=== PATIENT | female | born 1980 | race Caucasian/White ===

== ENCOUNTER 2021-04-17 16:21 | Emergency (ER) | payer BC ==
[~2021-04-17] VITALS: Ht 165.1 cm; Wt 1.8 kg
[~2021-04-17 16:21] MED LIST: ADDERALL 20 MG20 M1 PO; ALBUTEROL INH; DELTASONE20 MG PO; DOXYCYCLINE 10100 MG PO; EPIPEN 2-P0.3 MG/0.3 IM; HYDROXYZINE HCL25 M1 PO; MEDROLDOSEPACK PO; NORCO 7.5-3251 EACH PO; ZPAK
[2021-04-17 16:48] LABS: URINE BLOOD 1+ (Negative); URINE CLARITY CLEAR; URINE COLOR YELLOW; URINE GLUCOSE-RANDOM NEGATIVE (Negative); URINE KETONES NEGATIVE (Negative); URINE LEUKOCYTES-REFLEX NEGATIVE (Negative); URINE NITRITE-REFLEX NEGATIVE (Negative); URINE PROTEIN 1+ (Negative); URINE SPECIFIC GRAVITY >= 1.030 (1.005-1.030)
[2021-04-17 16:53] LABS: ICTOTEST (BILI CONFIRMATORY) Positive (Negative); URINE BILIRUBIN 1+ (Negative)
[2021-04-17 17:05] LABS: CRYSTALS None Seen /LPF (None Seen); HYALINE CASTS >10 Many /LPF (None Seen); MUCUS 4-6 Moderate strn/LPF (None Seen); SQUAMOUS >10 Many /LPF (0-3); URINE WBC-REFLEX 0-5 Rare /HPF (0-5)
[2021-04-17 17:06] LABS: URINE RBC 0-2 Rare /HPF (0-2)
[2021-04-17 17:07] LABS: AMP/METHAMP Negative (Negative); BARBITURATES Negative (Negative); BENZODIAZEPINES POSITIVE (Negative); COCAINE Negative (Negative); METHADONE Negative (Negative); OPIATES Negative (Negative); PCP Negative (Negative); THC POSITIVE (Negative)
[2021-04-17 17:20] LABS: ABSOLUTE BASOPHILS 0.1 thou/uL (0.0-0.2); ABSOLUTE EOSINOPHILS 0.1 thou/uL (0.0-0.7); ABSOLUTE LYMPHOCYTES 1.5 thou/uL (0.8-5.3); ABSOLUTE NEUTROPHILS 10.4 thou/uL (1.6-8.1); BASOPHILS 0.5 %; HEMATOCRIT 42.5 % (37.0-47.0); HEMOGLOBIN 14.5 gm/dL (12.0-15.0); LYMPHOCYTES 11.1 %; MCH 33.2 pg (26.0-34.0); MCHC 34.1 g/dL (28.0-37.0); MCV 97.5 fL (80.0-100.0); MONOCYTES 7.7 %; MPV 8.4 fl. (7.2-11.1); NUCLEATED RBCS 0 /100WBC; PLATELET COUNT* 228 thou/uL (150-400); POLYS 79.7 %; RBC 4.36 mil/uL (4.20-5.00); RDW-CV 13.4 % (10.5-14.5); WBC 13.1 thou/uL (4.0-11.0)
[2021-04-17 17:30] LABS: CALCIUM 8.6 mg/dL (8.5-10.1); CREATININE 0.9 mg/dL (0.6-1.3); POTASSIUM 4.2 mmol/L (3.5-5.1)
[2021-04-17 17:34] LABS: ALBUMIN 3.4 g/dL (3.4-5.0); TOTAL BILIRUBIN 0.9 mg/dL (<0.1-1.0); TOTAL PROTEIN 6.9 g/dL (6.4-8.2)
[2021-04-17 17:46] LABS: ALCOHOL < 10 mg/dL (<10); SALICYLATE 4.8 mg/dL (2.8-20.0)
[2021-04-17 17:52] LABS: ACETAMINOPHEN < 2 ug/mL (10-30)
[2021-04-17 23:00] VITALS: BP 105/67
== END 2021-04-17 23:00 ==
LOC: M.ERS 16:21
PROVIDERS: Emergency Medicine Emergency Medical Services
DX: F32.9 Major depressive disorder, single episode, unspecified (principal); Z20.822 Contact with and (suspected) exposure to COVID-19; R45.851 Suicidal ideations; F41.9 Anxiety disorder, unspecified; Z90.49 Acquired absence of other specified parts of digestive tract; Z79.899 Other long term (current) drug therapy; Z91.018 Allergy to other foods; Z91.012 Allergy to eggs; Z91.013 Allergy to seafood